=== PATIENT | male | born 1960 | race Caucasian/White ===

== ENCOUNTER 2017-05-29 20:49 | Emergency (ER) | payer MEDICARE, OTHER ==
[~2017-05-29] VITALS: Ht 175.3 cm; Wt 100.0 kg
[2017-05-29] MEDS ORDERED: LISI-661 PO (21:02)
[2017-05-29] MEDS ORDERED: INSLAN SQ (21:02)
[2017-05-29] MEDS ORDERED: INSNOV SQ (21:02)
[2017-05-29] MEDS ORDERED: ASPI-556 PO (21:02)
[2017-05-29] MEDS ORDERED: METF850T2 PO (21:02)
[2017-05-29] MEDS ORDERED: PERCT10 PO (21:02)
[2017-05-29] MEDS ORDERED: TAMS0.4C32 PO (21:03)
[2017-05-29 21:12] LABS: GLUCOSE,POINT OF CARE 108 MG/DL (70-110)
[2017-05-29 23:27] VITALS: BP 117/74
[2017-05-30] MEDS ORDERED: KETOROLAC TROMETHAMINE 30 MG/ML VIAL IM ONE
== END 2017-05-30 00:20 | disposition home or self-care (01) ==
LOC: EMS 20:51
DX: J06.9 Acute upper respiratory infection, unspecified (principal); I10 Essential (primary) hypertension; E78.00 Pure hypercholesterolemia, unspecified; E11.9 Type 2 diabetes mellitus without complications; Z79.4 Long term (current) use of insulin
CPT/HCPCS: 71010; 82962; 93005; 96372; 99284; J1885

== ENCOUNTER 2018-11-27 19:33 | Emergency (ER) | payer MEDICARE, OTHER ==
[~2018-11-27] VITALS: Ht 175.3 cm; Wt 100.0 kg
[~2018-11-27 19:33] MED LIST: ASPI-556 PO; INSLAN SQ; INSNOV SQ; LISI-661 PO; METF-445 PO; PERCT10 PO; TAMS0.4C32 PO
[2018-11-27] MEDS ORDERED: LISI-662 PO (19:53)
[2018-11-27] MEDS ORDERED: GABA-531 PO (19:53)
[2018-11-27] MEDS ORDERED: KETOROLAC TROMETHAMINE 60 MG/2 ML VIAL IM ONE (22:00)
[2018-11-27] MEDS ORDERED: METHOCARBAMOL 500 MG TABLET PO ONE (22:00)
[2018-11-27 22:29] VITALS: BP 135/86
== END 2018-11-27 22:34 | disposition home or self-care (01) ==
LOC: EMS 19:34
DX: S30.0XXA Contusion of lower back and pelvis, initial encounter (principal); M62.838 Other muscle spasm; E11.9 Type 2 diabetes mellitus without complications; E78.00 Pure hypercholesterolemia, unspecified; G89.29 Other chronic pain; I10 Essential (primary) hypertension; Z86.73 Personal history of transient ischemic attack (TIA), and cerebral infarction without residual deficits; Z79.82 Long term (current) use of aspirin; Z79.4 Long term (current) use of insulin; Z79.84 Long term (current) use of oral hypoglycemic drugs; Z79.899 Other long term (current) drug therapy; W19.XXXA Unspecified fall, initial encounter; Y93.89 Activity, other specified; Y92.89 Other specified places as the place of occurrence of the external cause; Y99.8 Other external cause status
CPT/HCPCS: 96372; 99283; J1885